=== PATIENT | female | born 2000 | race African-American/Black ===

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

== ENCOUNTER 2020-02-07 11:16 | Emergency (ER) | payer OTHER ==
[~2020-02-07] VITALS: Ht 167.6 cm; Wt 75.0 kg
[2020-02-07 12:07] LABS: COLLECTION METHOD CLEAN CATCH
[2020-02-07 12:15] LABS: BUDDING YEAST Present /hpf; MUCOUS Present /lpf; PH 7 (5-8); URINE APPEARANCE Hazy; URINE BACTERIA None Seen /hpf; URINE BILIRUBIN Negative (NEGATIVE); URINE BLOOD Negative (NEGATIVE); URINE COLOR Yellow; URINE GLUCOSE Negative (NEGATIVE); URINE KETONE Negative (NEGATIVE); URINE LEUKOCYTE ESTERASE 3+ (NEGATIVE); URINE NITRATE Negative (NEGATIVE); URINE PROTEIN(semi-quant) Negative (NEGATIVE); URINE RBC 0-2 /hpf; URINE UROBILINOGEN Negative (NEGATIVE)
[2020-02-07 12:17] LABS: ALANINE AMINOTRANSFERASE 8 U/L (4-34); ALBUMIN 4.8 gm/dL (3.5-5.0); ALKALINE PHOSPHATASE 45 U/L (50-136); ANION GAP 10 mmol/L (7-16); AST,SGOT 19 U/L (15-37); BILIRUBIN,TOTAL 0.6 mg/dL (0.0-1.0); BLOOD UREA NITROGEN 13 mg/dL (7-17); CALCIUM 9.4 mg/dL (8.4-10.2); CARBON DIOXIDE 26 mmol/L (22-30); CHLORIDE 104 mmol/L (98-107); CREATININE, serum 0.56 (0.52-1.25); GLUCOSE 84 mg/dL (74-106); LIPASE 28 U/L (23-300); POTASSIUM 4.2 mmol/L (3.4-5.0); SODIUM 140 mmol/L (137-145); TOTAL PROTEIN 8.4 gm/dL (6.4-8.2)
[2020-02-07 12:19] LABS: C-REACTIVE PROTEIN < 0.5 mg/dL (0.0-0.9)
[2020-02-07] MEDS ORDERED: MACROBID 1100 MG/CAP PO (12:36)
[2020-02-07] MEDS ORDERED: DIFLUCAN 100MG100 MG PO (12:36)
[2020-02-07 12:45] LABS: BASO % 0.7 % (0.0-2.0); EOS # 0.1 (0.0-0.7); GRAN # 2.4 (1.4-6.5); GRAN % 54.3 % (42.2-75.2); HEMATOCRIT 39.6 % (35.0-45.0); LYMPH # 1.6 (1.2-3.4); LYMPH % 35.3 % (20.0-51.0); MEAN CELL VOLUME 99 fl (80.0-95.0); MEAN CORPUSCULAR HEMOGLOBIN 32 pg (26.0-32.0); MEAN CORPUSCULAR HGB CONC 33 g/dl (33.0-37.0); MEAN PLATELET VOLUME 11.7 fl (7.4-10.4); MONO # 0.3 (0.1-0.6); MONO % 7.5 % (1.7-9.3); PLATELET COUNT 193 K/mm3 (130-400); RED BLOOD COUNT 4.02 M/mm3 (4.10-5.30)
[2020-02-07 13:28] VITALS: BP 116/78; PULSE 48; TEMP 98.5
== END 2020-02-07 13:30 | disposition home or self-care (01) ==
LOC: COL.ER 11:16
PROVIDERS: Emergency Medicine
DX: N30.90 Cystitis, unspecified without hematuria (principal); B37.9 Candidiasis, unspecified; R51.9 Headache, unspecified; A54.9 Gonococcal infection, unspecified
CPT/HCPCS: J0696; J1885; J2550; J7030

== ENCOUNTER 2020-04-15 20:27 | Emergency (ER) | payer OTHER ==
[~2020-04-15] VITALS: Ht 167.6 cm; Wt 77.3 kg
[~2020-04-15 20:27] MED LIST changes: +DIFLUCAN 100MG100 MG PO; +MACROBID 1100 MG/CAP PO
[2020-04-15 20:31] VITALS: BP 136/83; TEMP 97.7
[2020-04-15 21:33] LABS: COLLECTION METHOD CLEAN CATCH
[2020-04-15 21:51] LABS: MUCOUS Present /lpf; PH 5 (5-8); URINE APPEARANCE Cloudy; URINE BACTERIA Rare /hpf; URINE BILIRUBIN Negative (NEGATIVE); URINE BLOOD Negative (NEGATIVE); URINE COLOR Yellow; URINE GLUCOSE Negative (NEGATIVE); URINE KETONE 1+ (NEGATIVE); URINE LEUKOCYTE ESTERASE Trace (NEGATIVE); URINE NITRATE Negative (NEGATIVE); URINE PROTEIN(semi-quant) Negative (NEGATIVE)
[2020-04-15 22:28] LABS: BASO % 0.5 % (0.0-2.0); EOS % 0.3 % (0-4.0); GRAN # 4.9 (1.4-6.5); GRAN % 78.2 % (42.2-75.2); HEMATOCRIT 43.1 % (35.0-45.0); HEMOGLOBIN 14.1 g/dl (12.0-15.0); LYMPH # 1.1 (1.2-3.4); LYMPH % 17.4 % (20.0-51.0); MEAN CELL VOLUME 100 fl (80.0-95.0); MEAN CORPUSCULAR HEMOGLOBIN 33 pg (26.0-32.0); MEAN CORPUSCULAR HGB CONC 33 g/dl (33.0-37.0); MEAN PLATELET VOLUME 11.2 fl (7.4-10.4); MONO # 0.2 (0.1-0.6); MONO % 3.3 % (1.7-9.3); PLATELET COUNT 179 K/mm3 (130-400); RED BLOOD COUNT 4.32 M/mm3 (4.10-5.30); REDCELL DISTRIBUTION WIDTH-CV 12.4 % (11.5-14.5)
[2020-04-15 22:40] LABS: ALANINE AMINOTRANSFERASE 8 U/L (4-34); ALKALINE PHOSPHATASE 51 U/L (50-136); ANION GAP 11 mmol/L (7-16); AST,SGOT 19 U/L (15-37); BILIRUBIN,TOTAL 0.7 mg/dL (0.0-1.0); BLOOD UREA NITROGEN 14 mg/dL (7-17); CALCIUM 9.5 mg/dL (8.4-10.2); CARBON DIOXIDE 26 mmol/L (22-30); CHLORIDE 102 mmol/L (98-107); CREATININE, serum 0.64 (0.52-1.25); GLUCOSE 111 mg/dL (74-106); LIPASE 30 U/L (23-300); POTASSIUM 3.6 mmol/L (3.4-5.0); SODIUM 138 mmol/L (137-145); TOTAL PROTEIN 8.6 gm/dL (6.4-8.2)
[2020-04-15 22:44] LABS: C-REACTIVE PROTEIN < 0.5 mg/dL (0.0-0.9)
[2020-04-16] MEDS ORDERED: CEFTIN 250250 MG/TAB PO (00:11)
[2020-04-16] MEDS ORDERED: ZOFRAN ODT4 MG PO (00:50)
[2020-04-16 00:57] VITALS: PULSE 85
== END 2020-04-16 00:57 | disposition home or self-care (01) ==
LOC: COL.ER 20:27
PROVIDERS: Nurse Practitioner
DX: N39.0 Urinary tract infection, site not specified (principal); N89.8 Other specified noninflammatory disorders of vagina; Z32.02 Encounter for pregnancy test, result negative; Z87.74 Personal history of (corrected) congenital malformations of heart and circulatory system
CPT/HCPCS: J0696; J1885; J2405; J7030

== ENCOUNTER 2020-08-02 08:54 | Emergency (ER) | payer OTHER ==
[~2020-08-02] VITALS: Ht 167.6 cm; Wt 77.3 kg
[~2020-08-02 08:54] MED LIST changes: +CEFTIN 250250 MG/TAB PO; +ZOFRAN ODT4 MG PO
[2020-08-02 09:00] VITALS: TEMP 98.2
[2020-08-02 09:39] LABS: BASO % 0.5 % (0.0-2.0); EOS # 0.1 (0.0-0.7); GRAN # 3.6 (1.4-6.5); GRAN % 62.7 % (42.2-75.2); HEMOGLOBIN 11.6 g/dl (12.0-15.0); LYMPH # 1.7 (1.2-3.4); LYMPH % 29.3 % (20.0-51.0); MEAN CELL VOLUME 97 fl (80.0-95.0); MEAN CORPUSCULAR HEMOGLOBIN 33 pg (26.0-32.0); MEAN CORPUSCULAR HGB CONC 34 g/dl (33.0-37.0); MEAN PLATELET VOLUME 11.3 fl (7.4-10.4); MONO # 0.4 (0.1-0.6); MONO % 6.3 % (1.7-9.3); PLATELET COUNT 195 K/mm3 (130-400); RED BLOOD COUNT 3.57 M/mm3 (4.10-5.30); REDCELL DISTRIBUTION WIDTH-CV 12.6 % (11.5-14.5)
[2020-08-02 09:47] LABS: ALBUMIN 4.2 gm/dL (3.5-5.0); BILIRUBIN,TOTAL 0.3 mg/dL (0.0-1.0); CALCIUM 8.9 mg/dL (8.4-10.2); CREATININE, serum 0.49 (0.52-1.25); POTASSIUM 3.8 mmol/L (3.4-5.0); TOTAL PROTEIN 7.6 gm/dL (6.4-8.2)
[2020-08-02 09:56] LABS: HEMATOCRIT 34.6 % (35.0-45.0)
[2020-08-02 09:56] LABS: COLLECTION METHOD CLEAN CATCH
[2020-08-02 10:15] LABS: MUCOUS Present /lpf; PH 6 (5-8); URINE APPEARANCE Hazy; URINE BACTERIA None Seen /hpf; URINE BILIRUBIN Negative (NEGATIVE); URINE BLOOD Negative (NEGATIVE); URINE COLOR Yellow; URINE GLUCOSE Negative (NEGATIVE); URINE KETONE Negative (NEGATIVE); URINE LEUKOCYTE ESTERASE Negative (NEGATIVE); URINE NITRATE Negative (NEGATIVE); URINE PROTEIN(semi-quant) Negative (NEGATIVE); URINE RBC 0-2 /hpf
[2020-08-02 11:05] VITALS: BP 100/61; PULSE 65
== END 2020-08-02 11:10 | disposition home or self-care (01) ==
LOC: COL.ER 08:54
PROVIDERS: Emergency Medicine
DX: O20.0 Threatened abortion (principal); Z3A.01 Less than 8 weeks gestation of pregnancy

== ENCOUNTER 2020-10-16 13:34 | Emergency (ER) | payer MEDICAID ==
[~2020-10-16] VITALS: Ht 167.6 cm; Wt 72.7 kg
[2020-10-16 13:55] VITALS: TEMP 98
[2020-10-16 15:29] LABS: COLLECTION METHOD CLEAN CATCH
[2020-10-16 15:32] LABS: BASO % 0.3 % (0.0-2.0); EOS # 0.1 (0.0-0.7); EOS % 0.7 % (0-4.0); GRAN # 5.4 (1.4-6.5); GRAN % 71.9 % (42.2-75.2); HEMOGLOBIN 10.9 g/dl (12.0-15.0); LYMPH # 1.6 (1.2-3.4); LYMPH % 21.6 % (20.0-51.0); MEAN CELL VOLUME 99 fl (80.0-95.0); MEAN CORPUSCULAR HEMOGLOBIN 33 pg (26.0-32.0); MEAN CORPUSCULAR HGB CONC 33 g/dl (33.0-37.0); MEAN PLATELET VOLUME 11.3 fl (7.4-10.4); MONO # 0.4 (0.1-0.6); MONO % 5.4 % (1.7-9.3); PLATELET COUNT 179 K/mm3 (130-400); RED BLOOD COUNT 3.31 M/mm3 (4.10-5.30); REDCELL DISTRIBUTION WIDTH-CV 13.2 % (11.5-14.5)
[2020-10-16 15:33] LABS: HEMATOCRIT 32.7 % (35.0-45.0)
[2020-10-16 15:41] LABS: MUCOUS Present /lpf; PH 7 (5-8); SQUAMOUS EPITHELIAL 0-2 /hpf; URINE APPEARANCE Hazy; URINE BACTERIA None Seen /hpf; URINE BILIRUBIN Negative (NEGATIVE); URINE BLOOD Negative (NEGATIVE); URINE COLOR Yellow; URINE GLUCOSE Negative (NEGATIVE); URINE KETONE Negative (NEGATIVE); URINE LEUKOCYTE ESTERASE Negative (NEGATIVE); URINE NITRATE Negative (NEGATIVE); URINE PROTEIN(semi-quant) Negative (NEGATIVE); URINE RBC 0-2 /hpf; URINE UROBILINOGEN >=4.0 mg/dL (NEGATIVE)
[2020-10-16 15:46] LABS: ALANINE AMINOTRANSFERASE 5 U/L (4-34); ALKALINE PHOSPHATASE 37 U/L (50-136); ANION GAP 6 mmol/L (7-16); AST,SGOT 17 U/L (15-37); BILIRUBIN,TOTAL 0.4 mg/dL (0.0-1.0); BLOOD UREA NITROGEN 12 mg/dL (7-17); C-REACTIVE PROTEIN < 0.5 mg/dL (0.0-0.9); CALCIUM 9.3 mg/dL (8.4-10.2); CARBON DIOXIDE 23 mmol/L (22-30); CHLORIDE 107 mmol/L (98-107); CREATININE, serum 0.42 (0.52-1.25); GLUCOSE 78 mg/dL (74-106); SODIUM 136 mmol/L (137-145); TOTAL PROTEIN 7.4 gm/dL (6.4-8.2)
[2020-10-16 17:56] VITALS: BP 113/38; PULSE 60
== END 2020-10-16 18:02 | disposition home or self-care (01) ==
LOC: COL.ER 13:34
PROVIDERS: Family Medicine
DX: O26.892 Other specified pregnancy related conditions, second trimester (principal); R55 Syncope and collapse; Q22.0 Pulmonary valve atresia; Z3A.18 18 weeks gestation of pregnancy
CPT/HCPCS: J7030; J7120

== ENCOUNTER 2021-01-28 14:58 | Outpatient (CLI) | payer MEDICAID ==
[~2021-01-28] VITALS: Ht 167.6 cm; Wt 83.6 kg
--- NOTE | 2021-01-28 20:00 | NUR ---
1999- NURSE CALLED TO ED ROOM TO DO 20MIN STRIP ON PT WHO HAS JUST TESTED POSITIVE FOR COVID. EFM APPLIED. PT REPORTS SHE HAS HAD SOME SAMIA NOVA CONTRACTIONS, BUT NOTHING CONSISTENT OR PAINFUL. DENIES VAGINAL BLEEDING OR LEAKING FLUID. SHE IS FEELING BABY MOVE. REPORTS HER TEMPERATURE HAS BEEN 99.6. 2019- AFTER 20MIN ON MONITOR IN ED, NONREACTIVE STRIP HAS BEEN OBTAINED. BASELINE IS 180 WITH MINIMAL VARIABILITY AND NO ACCELERATIONS. VARIABLE DECELS ARE NOTED WITH CONTRACTIONS IN TOCO TRACING. TOCO SHOWS CONTRACTIONS EVERY 4 TO 6 MINUTES, BUT PT REPORTS NOT FEELING MOST OF THEM. PT LEFT ON MONITORS AT THIS TIME. 2024- DR GUZMAN CALLED CHARTED. CLASSIFICATION OFFICER AND OB CHARGE NOTIFIED THAT PT NEEDS TO BE FURTHER ASSESSED IN OB. ER DOC PUTS IN ORDERS FOR FLUIDS AND TYLENOL AND ED NURSES START THOSE INTERVENTIONS. 2029- PT WITH 20G IV TO RIGHT WRIST WITH LR INFUSING. PT OFF MONITORS FOR TRANSFER. 2034- PT TO LR1 PER WHEELCHAIR FROM ED FOR FURTHER MONITORING. EFM X2 APPLIED. PT PROVIDED WATER, NURSING ADMISSION HISTORY AND ASSESSMENT COMPLETE. PLAN OF CARE DISCUSSED AND QUESTIONS ANSWERED.
[2021-01-28 20:34] LABS: BASO % 0.2 % (0.0-2.0); GRAN # 5.1 K/mm3 (1.4-6.5); GRAN % 82.8 % (42.2-75.2); HEMATOCRIT 29.6 % (35.0-45.0); LYMPH # 0.7 K/mm3 (1.2-3.4); LYMPH % 11.1 % (20.0-51.0); MEAN CELL VOLUME 96 fl (80.0-95.0); MEAN CORPUSCULAR HEMOGLOBIN 32 pg (26.0-32.0); MEAN CORPUSCULAR HGB CONC 34 g/dl (33.0-37.0); MEAN PLATELET VOLUME 12.4 fl (7.4-10.4); MONO # 0.3 K/mm3 (0.1-0.6); MONO % 5.4 % (1.7-9.3); PLATELET COUNT 124 K/mm3 (130-400); RED BLOOD COUNT 3.09 M/mm3 (4.10-5.30); REDCELL DISTRIBUTION WIDTH-CV 12.5 % (11.5-14.5)
[2021-01-28 20:51] LABS: BILIRUBIN,TOTAL 0.3 mg/dL (0.2-1.2); CALCIUM 8.1 mg/dL (8.4-10.2); CREATININE, serum 0.62 mg/dL (0.57-1.11); POTASSIUM 3.5 mmol/L (3.5-4.5); TOTAL PROTEIN 6.8 gm/dL (6.2-8.1)
[2021-01-28 21:00] VITALS: BP 121/67; PULSE 102; TEMP 99.9
[2021-01-28 22:22] VITALS: TEMP 98.7
== END 2021-01-28 22:25 | disposition home or self-care (01) ==
LOC: COL.ER 14:58 → LDRO 14:58 → LDR 21:03 → EDSTATUS 21:09 → LDRO 22:25
PROVIDERS: Nurse Practitioner
DX: O98.513 Other viral diseases complicating pregnancy, third trimester (principal); O36.8390 Maternal care for abnormalities of the fetal heart rate or rhythm, unspecified trimester, not applicable or unspecified; U07.1 COVID-19; Z3A.32 32 weeks gestation of pregnancy
CPT/HCPCS: OP; J7120

== ENCOUNTER 2021-03-12 17:19 | Outpatient (CLI) | payer MEDICAID ==
[~2021-03-12] VITALS: Ht 165.1 cm; Wt 86.4 kg
--- NOTE | 2021-03-12 17:30 | NUR ---
Patient ambulatory to LR4 with significant other, changed into gown, FHR/TOCO monitors placed. Patient states she started remedios around 1500 today and have gotten stronger. Denies any leaking of fluid, vaginal bleeding, or decreased movement. Plan of care discussed. /- Dr. Hernandez notified, see notification. 1819: Prasad VARGAS given report and assumes care of patient.
[2021-03-12] MEDS ORDERED: PRENATAL TABLET PO (17:44)
[2021-03-12] MEDS ORDERED: FERROUSGLUC256MG (17:45)
[2021-03-12 18:15] VITALS: BP 139/78; PULSE 62; TEMP 99.2
--- NOTE | 2021-03-12 18:30 | NUR ---
1830 SVE WITH NO CERVICAL CHANGE. DISMISS INSTRUCTIONS GIVE AND QUESTIONS ANSWERED 184 HOME WITH INSTRUCTIONS
== END 2021-03-12 18:45 | disposition home or self-care (01) ==
LOC: LDRO 17:19
DX: O62.9 Abnormality of forces of labor, unspecified (principal); Z3A.38 38 weeks gestation of pregnancy

== ENCOUNTER 2021-03-18 03:23 | Inpatient (IN) | payer MEDICAID ==
[2021-03-18] VITALS (38 sets, daily range): BP systolic 108–170; BP diastolic 55–97; PULSE 42–94; TEMP 97.8–98.5
[~2021-03-18] VITALS: Ht 167.6 cm; Wt 89.5 kg
[~2021-03-18 03:23] MED LIST changes: +FERROUSGLUC256MG; +PRENATAL TABLET PO
--- NOTE | 2021-03-18 03:30 | NUR ---
0330-, 39.5, ambulates onto unit with s/o. Oriented to LDR6. Instructed to change into gown. Patient denies LOF, VB, or decreased movement. Patient reports regular, painful ctx, occuring q 2-3 minutes. Reports did lose mucus plug earlier in the day. EFM/TOCO explained and applied. Assessments completed. Plan of care discussed. 0450-Patient admitted. 0515-IV started. Blood obtained, UDS obtained, and sent to lab. IVF bolus infusing. Consent explained and signed. 0545-Patient requesting epidural. 0558-SADE Bellamy notified. 0600-Patient given instructions on epidural placement. Verbalizes understanding.
[2021-03-18] MEDS ORDERED: TYLENOL 500MG500 MG PO (04:00)
[2021-03-18 06:08] LABS: BASO % 0.2 % (0.0-2.0); EOS % 0.1 % (0.0-4.0); GRAN # 6.1 K/mm3 (1.4-6.5); HEMOGLOBIN 10.1 g/dl (12.0-15.0); LYMPH # 1.5 K/mm3 (1.2-3.4); LYMPH % 18.2 % (20.0-51.0); MEAN CELL VOLUME 94 fl (80.0-95.0); MEAN CORPUSCULAR HEMOGLOBIN 32 pg (26-32); MEAN CORPUSCULAR HGB CONC 34 g/dl (33.0-37.0); MEAN PLATELET VOLUME 14.1 fl (7.4-10.4); MONO # 0.5 K/mm3 (0.1-0.6); MONO % 6.3 % (1.7-9.3); PLATELET COUNT 133 K/mm3 (130-400); RED BLOOD COUNT 3.21 M/mm3 (4.10-5.30); REDCELL DISTRIBUTION WIDTH-CV 13.5 % (11.5-14.5)
--- NOTE | 2021-03-18 06:20 | NUR ---
This RN assumes care of patient and bedside report received from Unique VARGAS. Patient waiting for epidural. 0640: Patient sitting up for epidural and Josesito SALES SERVICE TECHNICIAN at bedside. Difficulty tracing FHR due to maternal position. 0645: Test dose given and patient tolerates well. 0657: Patient repositioned and safety instructions/plan of care discussed. 0745: Barros cathter placed and patient tolerates well.
[2021-03-18 06:21] LABS: TRICYCLIC ANTIDEPRESS URINE NEGATIVE
--- NOTE | 2021-03-18 10:00 | NUR ---
Dr. Alamo at bedside assessing patient and FHR strip. SVE 5-6/90/-2 and AROM at this time with clear fluid noted. Plan of care discussed and pitocin augmentation discussed and patient agrees with plan of care. 1011: Pitocin started at 2mU per protocol. Patient uncomfortable with contractions and L.Gumaro FULL FASHIONED GARMENT KNITTER at bedside. 1045: Dr. Alamo at bedside and assessing FHR strip and patient. SVE-/0. L.Gumaro dosing epidural. 1115: SVE per physician /+1. 1125: Patient sitting up to replace epidural. L.Gumaro FULL FASHIONED GARMENT KNITTER at bedside. 1130: Test dose given and patient tolerates well.
--- NOTE | 2021-03-18 11:35 | NUR ---
Patient left lateral and FHR baseline 115-120bpm. Patient comfortable and resting at this time. 1230: FHR baseline 115-120bpm with recurrent variable/early decelerations. Difficulty tracing FHR and this RN adjusting monitor. 1240: SVE- 10/100/+2 and practice push done at this time. Dr. Alamo updated. 1248: Barros catheter removed and patient tolerates well. 1250: Pushing instructions discussed and Patient begins to push with contractions. 1254: Dr. Alamo called for delivery.
--- NOTE | 2021-03-18 13:08 | NUR ---
Dr. Alamo at bedside and patient prepped for vaginal delivery. 1311: Patient pushing with Dr. Alamo. 1314: Spontaneous vaginal delivery of viable female, head followed by body. Infant bulb syringed and to patients abdomen. Jony VARGAS assumes care of . Cord clamped x2 by physician and cut by FOB. Cord blood obtained. 1318: Spontaneous delivery of placenta and pitocin bolus started per protocol. Dr. Alamo orders for currette. Currettage done per physician. Physician repairs laceration. Fundal massage done, bleeding WNL, firm Pericare done, ice pack to perineum, patient repositioned. 1328: Hemabate given IM per Dr. Alamo orders. Plan of care discussed.
--- NOTE | 2021-03-18 16:15 | NUR ---
Patient sitting on edge of bed, this RN and Monica RN assists patient into wheelchair. Patient to bathroom and voids, pericare done, new gown/pad/underwear on. Patient to new room and oriented to and plan of care discussed
[2021-03-19 02:00] VITALS: BP 120/70; PULSE 55; TEMP 97.5
[2021-03-19 08:15] VITALS: BP 111/71; PULSE 54; TEMP 97.5
[2021-03-19] MEDS ORDERED: MOTRIN 800800 MG/TAB PO (09:12)
[2021-03-19 17:06] VITALS: BP 126/70; PULSE 63; TEMP 98.1
[2021-03-19 19:00] VITALS: BP 113/59; PULSE 72; TEMP 98
[2021-03-20 09:00] VITALS: BP 115/64; PULSE 62; TEMP 98.5
== END 2021-03-20 12:20 | disposition home or self-care (01) | DRG 768 ==
LOC: LDRO 03:23 → LDR 03:25 → LDRO 04:50 → LDR 04:51 → OB 16:30
PROVIDERS: ADMIT Obstetrics & Gynecology
PROC: 10E0XZZ Delivery of Products of Conception, External Approach (ICD-10-PCS; principal; 2021-03-18)
PROC: 0HQ9XZZ Repair Perineum Skin, External Approach (ICD-10-PCS; 2021-03-18)
PROC: 0U5C7ZZ Destruction of Cervix, Via Natural or Artificial Opening (ICD-10-PCS; 2021-03-18)
DX: O99.02 Anemia complicating childbirth (principal); Z37.0 Single live birth; O72.1 Other immediate postpartum hemorrhage; D64.9 Anemia, unspecified; O70.0 First degree perineal laceration during delivery; Z3A.39 39 weeks gestation of pregnancy; Z86.16 Personal history of COVID-19; Z95.828 Presence of other vascular implants and grafts
CPT/HCPCS: J2400; J2405; J2590; J7120

== ENCOUNTER 2022-01-17 14:28 | Emergency (ER) | payer MEDICAID ==
[~2022-01-17] VITALS: Ht 167.6 cm; Wt 65.9 kg
[~2022-01-17 14:28] MED LIST changes: +MOTRIN 800800 MG/TAB PO; +TYLENOL 500MG500 MG PO
[2022-01-17 14:50] VITALS: TEMP 98.3
[2022-01-17 15:36] LABS: STREP SCREEN POSITIVE
[2022-01-17] MEDS ORDERED: AMOXICILLIN 50500 MG PO (15:55)
[2022-01-17 15:56] LABS: MONOSCREEN NEGATIVE
[2022-01-17 16:11] VITALS: BP 121/66; PULSE 86
== END 2022-01-17 16:11 | disposition home or self-care (01) ==
LOC: COL.ER 14:28
PROVIDERS: Family Medicine
DX: J02.0 Streptococcal pharyngitis (principal)

== ENCOUNTER 2023-01-27 16:03 | Emergency (ER) | payer OTHER ==
[~2023-01-27] VITALS: Ht 167.6 cm; Wt 68.2 kg
[~2023-01-27 16:03] MED LIST changes: +AMOXICILLIN 50500 MG PO
[2023-01-27 16:06] VITALS: BP 114/60; PULSE 85; TEMP 97.2
== END 2023-01-27 16:49 | disposition home or self-care (01) ==
LOC: COL.ER 16:03
DX: J06.9 Acute upper respiratory infection, unspecified (principal)

== ENCOUNTER 2023-10-14 01:02 | Emergency (ER) | payer SELFPAY ==
[~2023-10-14] VITALS: Ht 167.6 cm; Wt 72.7 kg
[2023-10-14 01:06] VITALS: BP 129/91; TEMP 98
[2023-10-14 01:50] VITALS: PULSE 88
== END 2023-10-14 01:50 | disposition home or self-care (01) ==
LOC: COL.ER 01:02
DX: S81.812A Laceration without foreign body, left lower leg, initial encounter (principal); Z23 Encounter for immunization; W26.9XXA Contact with unspecified sharp object(s), initial encounter; Y93.89 Activity, other specified; Y92.039 Unspecified place in apartment as the place of occurrence of the external cause